=== PATIENT | female | born 2000 | race Caucasian/White ===

== ENCOUNTER 2021-07-23 04:54 | Emergency (ER) | payer OTHER, BC ==
[2021-07-23] MEDS ORDERED: Ketorolac Tromethamine 30 MG/ML VIAL ONE (05:29)
== END 2021-07-23 06:30 | disposition home or self-care (01) ==
LOC: CSHERS 04:54
DX: S20.20XA Contusion of thorax, unspecified, initial encounter (principal); V49.40XA Driver injured in collision with unspecified motor vehicles in traffic accident, initial encounter
CPT/HCPCS: 71045; 93005; 96372; J1885

== ENCOUNTER 2021-10-18 19:25 | Emergency (ER) | payer BC, OTHER | END 2021-10-18 21:31 | disposition home or self-care (01) | LOC: CSHERS 19:25 | DX: I10 Essential (primary) hypertension (principal); F17.290 Nicotine dependence, other tobacco product, uncomplicated; G51.0 Bell's palsy | CPT/HCPCS: 99283 ==